=== PATIENT | female | born 1975 | race Caucasian/White ===

== ENCOUNTER 2016-12-21 10:40 | Emergency (ER) ==
[2016-12-21 11:41] LABS: URINE SOURCE CLEAN CATCH
[2016-12-21 11:48] LABS: BILIRUBIN URINE NEGATIVE (NEGATIVE); BLOOD URINE TRACE (NEGATIVE); CLARITY CLEAR (CLEAR); COLOR YELLOW; GLUCOSE URINE NEGATIVE (NEGATIVE); LEUKOCYTES URINE TRACE (NEGATIVE); NITRITE URINE NEGATIVE (NEGATIVE); PROTEIN URINE TRACE mg/dL (NEGATIVE); SP GRAVITY URINE 1.025; UROBILINOGEN URINE NORMAL
[2016-12-21 11:55] LABS: URINE CRYSTAL CA OXALATE PRESENT /HPF; URINE CULTURE PL NEEDED? YES; URINE EPITHELIAL CELLS <10 /HPF (<10)
[2016-12-21 12:17] LABS: MANUAL DIFF NEEDED? NO
[2016-12-21] MEDS ORDERED: TORADOL IV ONE (12:23)
[2016-12-21] MEDS ORDERED: NS 1,000 ML IV ONE (12:23)
[2016-12-21 12:27] LABS: BASO% 0.2 % (0.0-0.8); EOS# 0.06 X1000 (0.0-0.7); EOS% 0.4 % (0.0-10.0); HEMATOCRIT 38.6 % (37.0-47.0); HEMOGLOBIN 11.9 g/dL (12.0-16.0); IMM GRAN# 0.05 X1000 (0.0-0.04); IMM GRAN% 0.3 % (0.0-0.5); LYMPH# 2.16 X1000 (1.2-3.4); LYMPH% 14.1 % (20.5-51.1); MCH 24.2 PG (27-31); MCHC 30.8 g/dL (33-37); MCV 78.5 FL (81-99); MONO# 0.96 X1000 (0.11-0.59); MONO% 6.3 % (1.7-9.3); MPV 8.7 FL (7.4-10.4); PLT 595 X1000 (130-400); RBC 4.92 XMIL (4.2-5.4)
[2016-12-21 12:48] LABS: AGAP 14; ALBUMIN 3.8 g/dL (3.5-5.0); ALKALINE PHOSPHATASE 95 U/L (32-104); BUN 10 mg/dL (8-22); CALCIUM 9.3 mg/dL (8.8-10.2); CHLORIDE 97 mmol/L (98-107); COSMO 267; GOT 11 U/L (10-30); GPT 13 U/L (10-36); MAGNESIUM 2.3 mg/dL (1.5-2.7); POTASSIUM 3.3 mmol/L (3.5-5.1); SODIUM 134 mmol/L (136-145); TCO2 23 mmol/L (25-35); TOTAL PROTEIN 7.8 g/dL (6.3-8.3)
[2016-12-21 12:56] LABS: FREE T4 1.15 ng/dL (0.93-1.70)
--- NOTE | 2016-12-21 13:12 | Diag Imaging Result Document ---
PROCEDURE NAME: RENAL STONE SEARCH - 12/21/2016 CT ABDOMEN AND PELVIS: COMPARISON: 03/23/2016. FINDINGS: No radiodense renal stones. No hydronephrosis or hydroureter. Stable left adrenal nodule. There is an inflammatory collection in the retroperitoneum at the right lower quadrant, posterior to the proximal colon. There are some surgical suture lines in the colon at this location. This collection measures 7.5 x 3.8 cm. There is a droplet of gas within this collection. No free fluid or free air. No bowel obstruction. Urinary bladder, uterus, and rectum are normal. Bony structures are intact. IMPRESSION: Small retroperitoneal abscess at the right lower quadrant, posterior to the surgical resection site from previous.
[2016-12-21] MEDS: ROCEPHIN 1 GM/NS 50 ML IV ONE ×2 (13:14→13:38)
[2016-12-21 13:49] LABS: NEUT% 78.7 % (42.2-75.2)
--- NOTE | 2016-12-21 13:53 | PROVIDER DOCUMENTATION ---
HPI-Abdominal Pain/GI Problem - General Chief Complaint: General Adult Stated Complaint: FLU LIKE SX Time Seen by Provider: 12/21/16 10:51 Source: patient Allergies/Adverse Reactions: Patient Allergies Allergy/AdvReac Type Severity Reaction Status Date / Time No Known Allergies Allergy Verified 12/21/16 10:54 Home Medications: Home Medication List Medication Instructions Recorded Confirmed Last Taken Type Methylprednisolone [Medrol Dosepak] 4 mg PO DIRECTED 12/21/16 12/21/16 History Promethazine [Phenergan] 25 mg PO Q4H PRN PRN 12/21/16 12/21/16 Unknown History Sulfamethoxazole/Trimethoprim 1 each PO BID 12/21/16 12/21/16 12/21/16 History [Bactrim Ds Tablet] - History of Present Illness-ABD Nature of Presenting Problems: This pt presents today c complaints of r sided back pain, intermittent fevers and extreme fatigue X 2 weeks. She was seen by her PCP and given a prescription for possible UTI. She states that her symptoms never really got any better so she presents today for further evaluation. At present she is afebrile but is tachycardic. Abdominal Pain Onset Location: reports: flank (Right) Pain Radiation: reports: back Quality of Pain: reports: aching Severity in ED: reports: moderate Onset/Duration: reports: other (see hpi) Timing: reports: still present Modifying Factors: improves with: palpation (worsens) Associated Symptoms: reports: fever/chills, nausea Last BM: 24 hours ago Dark Stools Present?: reports: none noticed Rectal Bleeding: reports: none Rectal Pain: reports: none Emesis Description: reports: none Bruising or Bleeding Gums?: No Similar Symptoms Previously?: Yes Recently seen or treated by another doctor?: Yes Review of Systems - Adult - REVIEW OF SYSTEMS - ADULT Constitutional: reports: chills, fever, fatique. denies: night sweats, weight gain Eyes: reports: no symptoms reported. denies: discharge, dry eyes Ears, Nose, Mouth & Throat: reports: no symptoms reported. denies: ear discharge, ear pain Cardiovascular: reports: no symptoms reported. denies: chest pain, edema Respiratory: reports: no symptoms reported. denies: chronic cough, cough Gastrointestinal: reports: nausea. denies: diarrhea, difficulty swallowing Genitourinary: reports: flank pain. denies: dysuria, discharge Musculoskeletal: reports: back pain. denies: bone pain, joint pain, joint swelling Integumentary: reports: no symptoms reported. denies: hives, hair loss Neurological: reports: no symptoms reported. denies: ataxia, dizziness/vertigo Psychiatric: reports: no symptoms reported. denies: anxiety, anti-depressant use Endocrine: reports: no symptoms reported Hematologic/Lymphatic: reports: no symptoms reported Allergic/Immunologic: reports: no symptoms reported All Other Systems: Reviewed and Negative Past History - Adult - PAST MEDICAL HISTORY-ADULT Review of Records: reports: Old Records Reviewed, Nursing Assessment Review, Medications Reviewed, Social history reviewed & non-contributory. Major Childhood Illnesses: reports: denies history Cardiovascular: reports: denies history Respiratory: reports: denies history Gastrointestinal: reports: Crohn's Obstetrical/Gynecological: reports: denies history Genitourinary: reports: denies history Musculoskeletal: reports: denies history Neurological: reports: denies history Endocrine/Immune: reports: denies history Other Conditions: reports: denies history - PRIOR SURGERIES/PROCEDURES Surgical/Procedure History: reports: recent surgery (colon resection [address] Bond in [place]), cholecystectomy, Physical Exam-General - PHYSICAL EXAM-ADULT Initial Vital Signs Reviewed: Yes - CONSTITUTIONAL General Appearance: appears well, alert, no apparent distress - EYES Eyes: PERRL/EOMI, pink conjunctivae - HEAD, EARS, NOSE, MOUTH & THROAT HENMT: normocephalic/atraumatic, moist mucous membranes, normal ENT inspection - RESPIRATORY Respiratory: chest non-tender, lungs clear, normal breath sounds, no pleuratic chest pain, no respiratory distress, no accessory muscle use - CARDIOVASCULAR Cardiovascular: normal peripheral pulses, tachycardia - GASTROINTESTINAL (ABDOMEN) Abdominal Exam: normal bowel sounds, non tender, soft - MUSCULOSKELETAL Back Exam: normal inspection, CVA tenderness (Right) Extremity: normal range of motion, non-tender, normal gait, normal inspection - SKIN Integumentary: normal color, normal turgor, warm/dry - NEUROLOGIC Neurologic: grossly normal, no motor/sensory deficits Progress - PLAN OF CARE/RESULTS Progress/Plan/Lab Results: Laboratory Tests 12/21/16 12/21/16 12/21/16 11:02 11:02 11:16 WBC RBC Hgb Hct MCV MCH MCHC RDW Std Deviation Plt Count MPV Immature Gran % (Auto) Neut % (Auto) Lymph % (Auto) [place] % (Auto) Eos % (Auto) Baso % (Auto) Immature Gran # (Auto) Neut # (Auto) Lymph # (Auto) [place] # (Auto) Eos # (Auto) Baso # (Auto) Sodium Potassium Chloride Carbon Dioxide Anion Gap BUN Creatinine Estimated GFR/1.73 m2 BUN/Creatinine Ratio Glucose Calculated Osmolality Calcium Magnesium Total Bilirubin AST ALT Alkaline Phosphatase Total Protein Albumin Globulin Albumin/Globulin Ratio TSH Free T4 Urine Source CLEAN CATCH Urine Color YELLOW Urine Clarity CLEAR Urine pH 5.0 Ur Specific [place] 1.025 Urine Protein TRACE A Urine Ketones NEGATIVE Urine Blood TRACE Urine Nitrite NEGATIVE Urine Bilirubin NEGATIVE Urine Urobilinogen NORMAL Urine Microscopic RBC 10-20 A Urine WBC TRACE A Urine Microscopic WBC 10-20 A Ur Epithelial Cells <10 Urine Crystals CA OXALATE PRESENT Urine Bacteria 2+ Urine Glucose NEGATIVE Influenza A (Rapid) NEGATIVE Influenza B (Rapid) NEGATIVE Group A Strep Rapid NEGATIVE 12/21/16 12/21/16 12/21/16 12:10 12:10 12:10 WBC 15.32 H RBC 4.92 Hgb 11.9 L Hct 38.6 MCV 78.5 L MCH 24.2 L MCHC 30.8 L RDW Std Deviation 15.2 H Plt Count 595 H MPV 8.7 Immature Gran % (Auto) 0.3 Neut % (Auto) 78.7 H Lymph % (Auto) 14.1 L [place] % (Auto) 6.3 Eos % (Auto) 0.4 Baso % (Auto) 0.2 Immature Gran # (Auto) 0.05 H Neut # (Auto) 12.60 H Lymph # (Auto) 2.16 [place] # (Auto) 0.96 H Eos # (Auto) 0.06 Baso # (Auto) 0.03 Sodium 134 L Potassium 3.3 L Chloride 97 L Carbon Dioxide 23 L Anion Gap 14 BUN 10 Creatinine 0.8 Estimated GFR/1.73 m2 > 60 BUN/Creatinine Ratio 13 Glucose 89 Calculated Osmolality 267 Calcium 9.3 Magnesium 2.3 Total Bilirubin 0.30 AST 11 ALT 13 Alkaline Phosphatase 95 Total Protein 7.8 Albumin 3.8 Globulin 4.0 Albumin/Globulin Ratio 1.0 TSH 1.32 Free T4 1.15 Urine Source Urine Color Urine Clarity Urine pH Ur Specific [place] Urine Protein Urine Ketones Urine Blood Urine Nitrite Urine Bilirubin Urine Urobilinogen Urine Microscopic RBC Urine WBC Urine Microscopic WBC Ur Epithelial Cells Urine Crystals Urine Bacteria Urine Glucose Influenza A (Rapid) Influenza B (Rapid) Group A Strep Rapid Orders Category Date Time Status ED: Urine Bedside ORDERED Care 12/21/16 11:13 Active Saline Loc NOW Care 12/21/16 12:23 Active CHEST-2 VIEWS [RAD] Stat Exams 12/21/16 11:13 Taken RENAL STONE SEARCH [CT] Stat Exams 12/21/16 12:23 Draft BLOOD CULTURE [BLDCUL] Stat Lab 12/21/16 13:01 Ordered CBC WITH DIFF [HEME] Stat Lab 12/21/16 12:10 Completed COMPREHENSIVE METABOLIC PANEL [CHEM] Stat Lab 12/21/16 12:[address] Stat Lab 12/21/16 11:02 Completed FREE T4 Stat Lab 12/21/16 12:[address] Stat Lab 12/21/16 11:02 Completed LACTATE, PLASMA [CHEM] Stat Lab 12/21/16 13:27 Received MAGNESIUM [CHEM] Stat Lab 12/21/16 12:10 Com[address]IME WITH INR PL [COAG] Stat Lab 12/21/16 13:[address] [COAG] Stat Lab 12/21/16 13:27 Received TSH Stat Lab 12/21/16 12:10 Completed TYPE & SCREEN [BBK] Stat Lab 12/21/16 13:[address] W/POSS RFLX CULT [URINALYSIS] Stat Lab 12/21/16 11:16 Completed URINE CULTURE [RM] Routine Lab 12/21/16 11:56 Ordered 0.9% Sodium Chloride Inj [Ns] 1,000 ml Med 12/21/16 12:23 Discontinued IV 999 mls/hr CefTRIAXONE 1 GM/NS [Rocephin 1 gm/Ns] 50 ml Med 12/21/16 12:23 Discontinued IV NOW Ketorolac [Toradol] Med 12/21/16 12:23 Discontinued 15 mg IV NOW ONE Vital Signs Temp Pulse Resp BP Pulse Ox 12/21/16 10:48 97.6 F 122 H 32 H 144/98 96 No Known Allergies Allergy (Verified 12/21/16 10:54) Methylprednisolone [Medrol Dosepak] 4 mg PO DIRECTED 12/21/16 Promethazine [Phenergan] 25 mg PO Q4H PRN PRN 12/21/16 Sulfamethoxazole/Trimethoprim [Bactrim Ds Tablet] 1 each PO BID 12/21/16 Laboratory 12/21/16 12/21/16 12/21/16 12:10 12:10 12:10 WBC 15.32 H RBC 4.92 Hgb 11.9 L Hct 38.6 MCV 78.5 L MCH 24.2 L MCHC 30.8 L RDW Std Deviation 15.2 H Plt Count 595 H MPV 8.7 Immature Gran % (Auto) 0.3 Neut % (Auto) 78.7 H Lymph % (Auto) 14.1 L [place] % (Auto) 6.3 Eos % (Auto) 0.4 Baso % (Auto) 0.2 Immature Gran # (Auto) 0.05 H Neut # (Auto) 12.60 H Lymph # (Auto) 2.16 [place] # (Auto) 0.96 H Eos # (Auto) 0.06 Baso # (Auto) 0.03 Sodium 134 L Potassium 3.3 L Chloride 97 L Carbon Dioxide 23 L Anion Gap 14 BUN 10 Creatinine 0.8 Estimated GFR/1.73 m2 > 60 BUN/Creatinine Ratio 13 Glucose 89 Calculated Osmolality 267 Calcium 9.3 Magnesium 2.3 Total Bilirubin 0.30 AST 11 ALT 13 Alkaline Phosphatase 95 Total Protein 7.8 Albumin 3.8 Globulin 4.0 Albumin/Globulin Ratio 1.0 TSH 1.32 Free T4 1.15 Urine Source Urine Color Urine Clarity Urine pH Ur Specific [place] Urine Protein Urine Ketones Urine Blood Urine Nitrite Urine Bilirubin Urine Urobilinogen Urine Microscopic RBC Urine WBC Urine Microscopic WBC Ur Epithelial Cells Urine Crystals Urine Bacteria Urine Glucose Influenza A (Rapid) Influenza B (Rapid) Group A Strep Rapid 12/21/16 12/21/16 12/21/16 11:16 11:02 11:02 WBC RBC Hgb Hct MCV MCH MCHC RDW Std Deviation Plt Count MPV Immature Gran % (Auto) Neut % (Auto) Lymph % (Auto) [place] % (Auto) Eos % (Auto) Baso % (Auto) Immature Gran # (Auto) Neut # (Auto) Lymph # (Auto) [place] # (Auto) Eos # (Auto) Baso # (Auto) Sodium Potassium Chloride Carbon Dioxide Anion Gap BUN Creatinine Estimated GFR/1.73 m2 BUN/Creatinine Ratio Glucose Calculated Osmolality Calcium Magnesium Total Bilirubin AST ALT Alkaline Phosphatase Total Protein Albumin Globulin Albumin/Globulin Ratio TSH Free T4 Urine Source CLEAN CATCH Urine Color YELLOW Urine Clarity CLEAR Urine pH 5.0 Ur Specific [place] 1.025 Urine Protein TRACE A Urine Ketones NEGATIVE Urine Blood TRACE Urine Nitrite NEGATIVE Urine Bilirubin NEGATIVE Urine Urobilinogen NORMAL Urine Microscopic RBC 10-20 A Urine WBC TRACE A Urine Microscopic WBC 10-20 A Ur Epithelial Cells <10 Urine Crystals CA OXALATE PRESENT Urine Bacteria 2+ Urine Glucose NEGATIVE Influenza A (Rapid) NEGATIVE Influenza B (Rapid) NEGATIVE Group A Strep Rapid NEGATIVE Will transfer to Dr. Bond in [place]. - CT/MRI 1 CT Study: Abdomen, Pelvis Impression: Abnormal CT Results: 7cm X 3cm retroperitoneal abscess at neoterminal ileum RLQ - CONSULTS/PCP/HOSPITALIST Notification #1 *Consult/PCP/Hospitalist*: Dr. Carrillo Time Discussed: 13:30 Consult Disposition: other (Refer to previous surgeon) #2 Consult: Dr. Bond Time Discussed: 13:53 Consult Disposition: Admit Departure - Departure Time of Disposition Order: 13:54 DIAGNOSIS: Retroperitoneal abscess, S/P colectomy Disposition: [place] [id number] Certified Medical Emergency: Emergent Condition: Stable Attestation - Physician/ MALATHI Attestation Patient care was provided by Advanced Practice Provider:: Yes Advanced Practice Provider:: Joseph Scott Advanced Practice Provider documentation review:: The Mid-level provider documentation, treatment plan and medical decision making was reviewed by the physician who agrees with all treatment and medical decision making by the P.
[2016-12-21] MEDS ORDERED: ZOSYN 3.375 GM/NS 50 ML IV ONE (13:59)
[2016-12-21] MEDS ORDERED: FLAGYL 500 MG/NS 100 ML IV ONE (13:59)
[2016-12-21 14:10] LABS: INR 1.09 (0.86-1.15); PROTIME 14.4 Seconds (12.1-15.5)
[2016-12-21 14:11] LABS: PTT PL 31.6 Seconds (22.6-43.9)
--- NOTE | 2016-12-21 14:30 | Diag Imaging Result Document ---
PROCEDURE NAME: CHEST-2 VIEWS - 12/21/2016 CHEST X-RAY 2 VIEWS: COMPARISON: 07/21/2016. FINDINGS: There is some trace atelectasis or infiltrate at the left lower lobe, notably in the lateral costophrenic angle. Heart size is normal. No pneumothorax or pleural effusion. IMPRESSION: Trace right basilar infiltrate or atelectasis.
[2016-12-21] MEDS ORDERED: NS 1,000 ML IV SCH (16:15)
[2016-12-21] MEDS ORDERED: SODIUM CHLORIDE 0.9% INJ ONE (16:18)
[2016-12-21] MEDS ORDERED: PHENERGAN IV ONE (16:18)
[2016-12-21] MEDS ORDERED: DILAUDID IM ONE (18:00)
[2016-12-21] MEDS ORDERED: ZOFRAN IV ONE (18:21)
[2016-12-21] MEDS ORDERED: MORPHINE IV ONE (18:23)
[2016-12-21] MEDS ORDERED: OFIRMEV 1000 MG/ISOTONIC SOLN 100 ML IV ONE (19:25)
[2016-12-22 00:58] VITALS: BP 111/76
== END 2016-12-22 01:21 | disposition short-term general hospital (02) ==
LOC: P.ED 10:40
DX: K68.19 Other retroperitoneal abscess (principal); Z90.49 Acquired absence of other specified parts of digestive tract; M54.9 Dorsalgia, unspecified; R50.9 Fever, unspecified; R53.83 Other fatigue; R10.9 Unspecified abdominal pain; R11.0 Nausea; K50.90 Crohn's disease, unspecified, without complications; R00.0 Tachycardia, unspecified
CPT/HCPCS: 36415; 71020; 74176; 80053; 81001; 81025; 83605; 83735; 84439; 84443; 85025; 85610; 85730; 86850; 86900; 86901; 87040; 87081; 87088; 87430; 87804; 96361; 96365; 96366; 96367; 96368; 96372; 96375; J0131; J0696; J1170; J1885; J2405; J2543; J2550; J7030; S0030